=== PATIENT | female | born 1955 ===

== ENCOUNTER 2018-08-20 08:29 | Outpatient (CLI) | payer BC | END 2018-08-20 08:30 | disposition home or self-care (01) | LOC: C.MAMMO 08:29 ==

== ENCOUNTER 2018-08-24 09:57 | Outpatient (CLI) | payer BC | END 2018-08-24 09:58 | disposition home or self-care (01) | LOC: C.USIC 09:57 | DX: Z80.41 Family history of malignant neoplasm of ovary (principal) ==